=== PATIENT | male | born 1975 | race Caucasian/White ===

== ENCOUNTER 2017-09-06 12:15 | Emergency (ER) | payer OTHER ==
[2017-09-06 12:39] VITALS: TEMP 98.2
--- NOTE | 2017-09-06 13:05 | ED ---
General Adult HPI - General Chief complaint: Extremity Injury, Upper Stated complaint: IHS - thumb injury Time Seen by Provider: 09/06/17 12:42 Source: patient, RN notes reviewed Mode of arrival: ambulatory Limitations: no limitations - History of Present Illness Initial comments: Patient 42-year-old male presented to the emergency room today with a chief complaint of an injury that occurred at work. He does not that he tripped falling forward hitting his right fall and hand. He does not that he jammed a fall. States located to the distal aspect. Also admits to a superficial cut to the fourth digit on the volar aspect of the right hand. Patient states his tetanus is up-to-date. Patient denies any recent fever, chills, shortness of breath, chest pain, back pain, abdominal pain, nausea or vomiting, constipation or diarrhea, headaches or visual changes, or any other complaints. - Related Data Home Medications Medication Instructions Recorded Confirmed Fluticasone/Vilanterol [Breo 1 puff INHALATION RT-HS 09/06/17 09/06/17 Ellipta 200-25 Mcg INH] Allergies Allergy/AdvReac Type Severity Reaction Status Date / Time No Known Allergies Allergy Verified 09/06/17 12:57 Review of Systems ROS Statement: Those systems with pertinent positive or pertinent negative responses have been documented in the HPI. ROS Other: All systems not noted in ROS Statement are negative. Past Medical History Additional Past Medical History / Comment(s): hypercholestremia. History of Any Multi-Drug Resistant Organisms: None Reported Additional Past Surgical History / Comment(s): neck surgery 2014 Past Psychological History: No Psychological Hx Reported Smoking Status: Current every day smoker Past Alcohol Use History: Rare Past Drug Use History: None Reported General Exam - General Exam Comments Initial Comments: General: The patient is awake and alert, in no distress, and does not appear acutely ill. Eye: Pupils are equal, round and reactive to light, extra-ocular movements are intact. No nystagmus. There is normal conjunctiva bilaterally. No signs of icterus. Ears, nose, mouth and throat: There are moist mucous membranes and no oral lesions. Neck: The neck is supple, there is no tenderness or JVD. Musculoskeletal: Normal ROM. Mild tenderness distal aspect of the right thumb. Strength 5/5. Sensation intact. Pulses equal bilaterally 2+. Neurological: A&O x 3. CN II-XII intact, There are no obvious motor or sensory deficits. Coordination appears grossly intact. Speech is normal. Skin: Skin is warm and dry. Superficial laceration to the volar aspect of the right ring finger. No active bleeding. No deep tissue involvement. Psychiatric: Cooperative, appropriate mood & affect, normal judgment. Limitations: no limitations Course Vital Signs 09/06/17 12:35 Temperature 98.2 F Pulse Rate 86 Respiratory 16 Rate Blood Pressure 157/92 O2 Sat by Pulse 97 Oximetry Medical Decision Making - Medical Decision Making Patient's x-ray reviewed does show abnormality of the distal second metacarpal. Patient has no bony tenderness in this area. Tender to the distal aspect of the right thumb. No sign of fracture dislocation. Patient does have superficial laceration at the volar aspect of the right ring finger. No sutures required. Patient's tetanus up-to-date. He'll be discharged home. Disposition Clinical Impression: Thumb sprain, Finger laceration Disposition: HOME SELF-CARE Condition: Good Instructions: Finger Sprain (ED) Additional Instructions: Please follow-up with family doctor in the next 2-5 days of symptoms have not improved. Please return to emergency room if the symptoms increase or worsen or for any other concerns. Is patient prescribed a controlled substance at d/c from ED?: No Referrals: Lukasz Mccauley DO [Primary Care Provider] - 1-2 days Time of Disposition: 14:19
--- NOTE | 2017-09-06 14:02 | XR ---
EXAMINATION TYPE: XR hand complete RT DATE OF EXAM: 09/06/2017 COMPARISON: NONE HISTORY: 42-year-old male fall today, first digit pain TECHNIQUE: 3 views FINDINGS: Lucency along the ulnar aspect of the second metatarsal head appears corticated. Otherwise, no acute fracture, subluxation, or dislocation is seen. IMPRESSION: 1. Osseous fragment along the ulnar aspect of the second metatarsal head appears corticated. Findings suspected to represent sequela of remote injury especially if there is no point tenderness in this l ocation. 2. Otherwise, no acute osseous abnormality.
[2017-09-06 14:40] VITALS: BP 147/86; PULSE 76; RESP 18
== END 2017-09-06 14:40 | disposition home or self-care (01) ==
LOC: EC 12:15
DX: S63.601A Unspecified sprain of right thumb, initial encounter (principal); S61.214A Laceration without foreign body of right ring finger without damage to nail, initial encounter; F17.200 Nicotine dependence, unspecified, uncomplicated; Z79.51 Long term (current) use of inhaled steroids; Z79.899 Other long term (current) drug therapy; W01.0XXA Fall on same level from slipping, tripping and stumbling without subsequent striking against object, initial encounter; Y92.69 Other specified industrial and construction area as the place of occurrence of the external cause; Y99.0 Civilian activity done for income or pay
CPT/HCPCS: 99283

== ENCOUNTER → 2017-09-19 | Outpatient (CLI) | payer OTHER ==
--- NOTE | 2017-09-19 15:17 | XR ---
EXAMINATION TYPE: XR finger RT, 3 views coned down on the thumb DATE OF EXAM: 09/19/2017 COMPARISON: NONE HISTORY: 42-year-old male pain after jamming right thumb FINDINGS: There is mild degenerative spurring at the first MCP joint. Additional mild degenerative spurring at the first CMC joint. Soft tissue swelling without acute fracture or dislocation seen. 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
== END | disposition home or self-care (01) ==
LOC: RADXRMAIN 14:38
PROVIDERS: ATTEND Emergency Medicine
DX: M19.031 Primary osteoarthritis, right wrist (principal); M19.041 Primary osteoarthritis, right hand

== ENCOUNTER 2019-04-14 08:42 | Emergency (ER) | payer OTHER ==
[2019-04-14 08:57] VITALS: BP 157/97; PULSE 79; RESP 18; TEMP 99
[2019-04-14] MEDS ORDERED: KETOROLAC 60 MG/2 ML VIAL IM STA (09:20)
[2019-04-14] MEDS ORDERED: DIPH,PERTUS(ACELL)TETVAC-LF 0.5 ML VIAL IM ONE (09:29)
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
== END 2019-04-14 10:27 | disposition home or self-care (01) ==
LOC: EC 08:42
DX: T24.232A Burn of second degree of left lower leg, initial encounter (principal); T31.0 Burns involving less than 10% of body surface; F17.200 Nicotine dependence, unspecified, uncomplicated; Z23 Encounter for immunization; X02.0XXA Exposure to flames in controlled fire in building or structure, initial encounter; Y93.89 Activity, other specified; Y92.69 Other specified industrial and construction area as the place of occurrence of the external cause; Y99.0 Civilian activity done for income or pay
CPT/HCPCS: 90715; 99283; 16000; 96372; 90471; J1885

== ENCOUNTER 2020-02-29 07:30 | Emergency (ER) | payer OTHER ==
[2020-02-29 07:51] VITALS: RESP 17; TEMP 98.5
[2020-02-29] MEDS ORDERED: ACET/COD 300 MG/30 MG STARTER PACK 6 TAB BTL PO STA (07:52)
--- NOTE | 2020-02-29 08:26 | ED ---
Lower Extremity Injury HPI - General Chief Complaint: Extremity Injury, Lower Stated Complaint: IHS - Fall Time Seen by Provider: 02/29/20 07:34 Source: patient Mode of arrival: wheelchair Limitations: physical limitation - History of Present Illness Initial Comments: 44yo male presenting to the ER for slip and fall on ice at work. pt states he was getting out of car when he slipped on ice. he states he did not hit head, neck , chest, abdomen. he states he twisted his right lower leg. admits to lower leg pain, denies pain at knee. denies low back pain, hip pain, or left lower extremity injury pain. pt states it hurts to weight bear. denies foot pain. patient has no additional complaints. denies LOC or anticoagulation therapy. - Related Data Home Medications Medication Instructions Recorded Confirmed Fluticasone/Vilanterol [Breo 1 puff INHALATION RT-HS 09/06/17 09/06/17 Ellipta 200-25 Mcg INH] Allergies Allergy/AdvReac Type Severity Reaction Status Date / Time No Known Allergies Allergy Verified 02/29/20 07:51 Review of Systems ROS Statement: Those systems with pertinent positive or pertinent negative responses have been documented in the HPI. ROS Other: All systems not noted in ROS Statement are negative. Past Medical History Past Medical History: Hyperlipidemia Additional Past Medical History / Comment(s): hypercholestremia. History of Any Multi-Drug Resistant Organisms: None Reported Past Surgical History: Hernia Repair Additional Past Surgical History / Comment(s): neck surgery 2013 Past Psychological History: No Psychological Hx Reported Smoking Status: Current every day smoker Past Alcohol Use History: Rare Past Drug Use History: None Reported General Exam - General Exam Comments Initial Comments: General: The patient is awake and alert, in no distress Eye: +3 mm pupils are equal, round and reactive to light, extra-ocular movements are intact. No nystagmus. There is normal conjunctiva bilaterally. No signs of icterus. Cardiovascular: There is a regular rate and rhythm. No murmur, rub or gallop is appreciated. Respiratory: Lungs are clear to auscultation, respirations are non-labored, breath sounds are equal. No wheezes, stridor, rales, or rhonchi. Gastrointestinal: Soft, non-distended, non-tender abdomen without masses or organomegaly noted. There is no rebound or guarding present. Musculoskeletal: Some distal tibia fibula swelling, there is mild proximal fibular tenderness, there is pain to cmpression of the distal tibia/fibula. this is where most pain is, distally. Normal RO with some tenderness at ankle. no knee pain. Strength 5/5. Sensation intact proximal and distal to injury site. extensor mechanism intact. Radial and DP pulses equal bilaterally 2+. Compartments are soft and compressible Neurological: A&O x 3. CN II-XII intact grossly, There are no obvious motor or sensory deficits. Coordination appears grossly intact. Speech is normal. Skin: Skin is warm and dry and no rashes or lesions are noted. Psychiatric: Cooperative, appropriate mood & affect, normal judgment. Limitations: physical limitation Course Vital Signs 02/29/20 07:45 Temperature 98.5 F Pulse Rate 82 Respiratory 17 Rate Blood Pressure 138/85 O2 Sat by Pulse 97 Oximetry Medical Decision Making - Medical Decision Making 44-year-old male presenting for right lower leg pain. Most that that is distal aspect of tibia/fibula. very mild proximal pain. XR concerning for possible Maissoneve type fracture with proximal fibular fracture and suspected right ankle sprain/cannot r/o chip fracture. Patient placed in posterior mold splint with stirrups, stressed non weight bearing, prescribed crutches and the size importance of orthopedic surgery within the next 2-3 days or when calling to schedule appointment on Monday as it is Monday. Patient neurovascularly intact both prior to and after splinting with synthetic prepadded splinting material/spencer bandages. discussed case and reviewed imaging with Dr Kenny who is agreeable to care plan. Disposition Clinical Impression: Fall, Right ankle sprain, Fracture of proximal end of fibula, Fracture of right proximal fibula Disposition: HOME SELF-CARE Condition: Good Instructions (If sedation given, give patient instructions): Ankle Sprain (ED), Leg Fracture (ED) Additional Instructions: Please use medication as discussed. Please follow-up with orthopedic surgery in the next 2-3 days. Do not weight bear until orthopedic clearance use crutches for ambulation and keep splint in place Please return to emergency room if the symptoms increase or worsen or for any other concerns. Is patient prescribed a controlled substance at d/c from ED?: No Referrals: Lukasz Mccauley DO [Primary Care Provider] - 1-2 days Branch,Heri M, PAC [PHYSICIAN P[employer] SUPERVISOR] - 1-2 days Time of Disposition: 08:26
[2020-02-29] MEDS ORDERED: HYDROmorphone 0.5 MG/0.5 ML SYRINGE IM STA (08:36)
--- NOTE | 2020-02-29 08:48 | XR ---
Right leg and right ankle HISTORY: Trauma and pain Frontal and lateral views of the right leg on 4 images, 3 views of the right ankle submitted There is an oblique fracture through the proximal diaphyseal right fibula with minimal displacement o f approximately 5 millimeters. Soft tissue swelling noted at the right ankle. No dislocation. Questio n a small ossific density at the level of the medial aspect of the talus, possible small chip fractur e. There is a plantar calcaneal spur. Enthesophyte present at the insertion of the Achilles tendon. O steoarthritic changes are present at the intertarsal joints. IMPRESSION: Fibular fracture on the right. Difficult to exclude small chip fracture at the medial christine us at the level of the tibiotalar joint lateral to the medial malleolus.
[2020-02-29 10:35] VITALS: BP 143/99; PULSE 76
== END 2020-02-29 10:44 | disposition home or self-care (01) ==
LOC: EC 07:30
DX: S82.831A Other fracture of upper and lower end of right fibula, initial encounter for closed fracture (principal); F17.200 Nicotine dependence, unspecified, uncomplicated; W00.0XXA Fall on same level due to ice and snow, initial encounter; Y92.69 Other specified industrial and construction area as the place of occurrence of the external cause; Y99.0 Civilian activity done for income or pay
CPT/HCPCS: 73590; 73610; 99283; 96372; 29515; J1170

== ENCOUNTER 2023-12-08 12:01 | Day surgery (SDC) | payer OTHER ==
[2023-12-05 15:12] VITALS: BMI 37.3
[~2023-12-08 12:01] MED LIST: LIDOCAINE 1% (10MG/ML) FOR IV START INTRADERMA PRN
[2023-12-08] MEDS: IV FLUID CONTINUATION 1,000 ML IV ONE (12:45)
[2023-12-08] MEDS: LACTATED RINGERS 1,000 ML IV SCH (13:10)
[2023-12-08 13:16] VITALS: TEMP 97
[2023-12-08 13:16] LABS: Glucose,Whole Blood 76 mg/dL (70-110)
[2023-12-08] MEDS ORDERED: PROPOFOL 10 MG/ML 20 ML VIAL IV ONE (14:01)
--- NOTE | 2023-12-08 14:23 | P.PCN ---
Date of Procedure: 12/08/23 Procedure(s) Performed: BRIEF HISTORY: Patient is a 48-year-old pleasant white male scheduled for an elective colonoscopy as a part of screening for colon cancer. PROCEDURE PERFORMED: Colonoscopy with snare polypectomy and Endo Clip placement PREOPERATIVE DIAGNOSIS: Screening for colon cancer. IV sedation per Anesthesia. PROCEDURE: After informed consent was obtained, the patient, was brought into the endoscopy unit. IV sedation was administered by Anesthesia under continuous monitoring. Digital rectal examination was normal. Initially the Olympus CF-160 flexible video colonoscope was then inserted in the rectum, gradually advanced into the cecum without any difficulty. Careful examination was performed as the scope was gradually being withdrawn. Ileocecal valve and the appendiceal orifice were visualized and appeared normal. Prep was excellent. Mucosa of the cecum, ascending colon, appeared normal. The hepatic flexure there was a 2.5 cm broad- based polyp that was removed by piecemeal snare polypectomy followed by Endo Clip placement. Rest of the transverse colon, descending colon, sigmoid colon, and rectum appeared normal. Retroflexion was performed in the rectum and no lesions were seen. The patient tolerated the procedure well. IMPRESSION: 2.5 cm broad-based hepatic flexure polyp status post piecemeal snare polypectomy followed by Endo Clip placement and complete polypectomy accomplished The colon appeared normal. RECOMMENDATIONS: Findings of this examination were discussed with the patient as well as his family. He was advised to follow-up with the biopsy results. If the biopsy reveals adenoma he can have repeat colonoscopy in 3 years.
[2023-12-08 14:29] VITALS: RESP 14
[2023-12-08 14:43] VITALS: BP 144/88; PULSE 63
== END 2023-12-08 15:02 | disposition home or self-care (01) ==
LOC: ORWHC2ENDO 12:01
PROVIDERS: ATTEND Internal Medicine Gastroenterology
DX: Z12.11 Encounter for screening for malignant neoplasm of colon (principal); D12.3 Benign neoplasm of transverse colon; Z79.899 Other long term (current) drug therapy; Z79.85 Long-term (current) use of injectable non-insulin antidiabetic drugs
CPT/HCPCS: 88305; 45385; J2704